=== PATIENT | male | born 1945 | race Caucasian/White ===

== ENCOUNTER 2016-07-11 09:53 | Inpatient (IN) | payer MEDICARE ==
[~2016-07-11] VITALS: Ht 162.6 cm; Wt 78.7 kg
[~2016-07-11 09:53] MED LIST: ADDE20 PO; DIAZ5TAB PO; HYDR-3533 PO; LISI-515 PO; METF1000 PO; NAPR500T PO
[2016-07-19] MEDS ORDERED: TURM500C PO (11:12)
[2016-07-19] MEDS ORDERED: VITA10007 PO (11:12)
[2016-07-19] MEDS ORDERED: MAGN250T2 PO (11:12)
[2016-07-19] MEDS ORDERED: D31000TA PO (11:12)
[2016-07-19] MEDS ORDERED: SUPETAB20 PO (11:12)
[2016-07-19] MEDS ORDERED: MULTTAB67 PO (11:12)
--- NOTE | 2016-07-27 12:38 | MH ---
cc: FRANCHESCA PASCAL M.D. DATE OF ADMISSION: 08/02/2016 ADMITTING DIAGNOSES 1. Severe osteoarthritis of the right knee. 2. Varus deformity right knee. 3. Degenerative tear medial meniscus right knee. 4. Pain right knee. 5. Gait disturbance. HISTORY The patient is a 70-year-old white male who has experienced at least a five-year history of pain involving his right knee. He had associated the onset of his symptoms as being related to participation in martial arts activities. He had undergone previous orthopedic evaluation in the past years for which he was treated with repeated courses of viscosupplementation utilizing Synvisc. He reports at least six courses of treatment during this interval of time with only temporary relief associated. He had also been taking Naprosyn for additional pain management. In the more recent past he had undergone sports medicine evaluation at the [facility] where an MRI scan was completed in April of this past year, the results of which identified severe osteoarthritic changes involving the medial compartment associated with a large degenerative tear involving the posterior horn and body of the medial meniscus. Hypertrophy of the anterior cruciate ligament was also identified. The patient was later seen by the undersigned physician in June of this year reporting increasing pain and incapacitation with regards to symptoms involving his right knee. There was frequent swelling and a grinding with an intermittent locking sensation being associated with a sensation of instability for which the patient had begun to utilize an orthotic support. He did report having undergone previous arthroscopic surgery of his left knee a number of years ago. 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 His x-ray studies had confirmed the presence of severe arthritic changes about the medial compartment with near [id number] apposition associated with a varus deformity of approximately 15 degrees magnitude. Findings and treatment options were reviewed with the patient in the presence of his . The pros and cons of continuing with conservative management versus operative intervention that would involve a total knee arthroplasty was outlined in detail. Emphasis was made regarding the fact that the decision to proceed with surgery would be left entirely to the patient's discretion. The patient readily admitted that he felt his discomfort had progressed to a point in time where he was ready to proceed in this direction and in compliance with his wishes he has currently been scheduled for admission in order that total knee replacement be completed. PAST MEDICAL HISTORY, HOSPITALIZATIONS AND SURGERIES 1. Arthroscopic surgery of the left knee as noted. 2. Esophageal dilation. 3. Lithotripsy. 4. Surgical intervention of a left wrist fracture that apparently included application of an external fixator and subsequent fusion as related to a history of trauma. MEDICAL ILLNESSES 1. Attention deficit disorder. 2. Hypertension. 3. Adult onset diabetes. CURRENT MEDICATIONS 1. Adderall 20 mg twice daily. 2. Diazepam 5 mg p.r.n. 3. Hydrocodone 5 mg p.r.n. 4. Lisinopril 20 mg daily. 5. Metformin 1000 mg daily. The patient reporting that he is a vegetarian. 6. Naproxen 500 mg p.r.n. 7. Multivitamin tablet daily. 8. Super-B Complex daily. 9. Vitamin C. 10. Magnesium. 11. Vitamin D3. 12. Tumeric, the last being taken twice daily. ALLERGIES The patient describes a drug allergy to LOSARTAN that has been as been associated with swelling. STATIN DRUGS have caused muscle and joint pain. REVIEW OF SYSTEMS He does wear glasses. Denies headache, seizure or syncope. Occasional sinus congestion as related to environmental agents. No epistaxis. Auditory acuity intact. No tinnitus. No bleeding gums or dysphagia. Denies cough or tuberculosis. There is a positive history of pneumonia. No angina or heart disease. He is medically managed for hypertension. His appetite is good. Bowel movements are regular. No hepatitis, gallbladder disease, ulcers or hemorrhoids. He has had no urinary tract infection but a positive history of kidney stones, multiple fractures including the ribs, mandible, nose, multiple toes and fingers. No psychiatric illness. His remaining review of systems is unremarkable and noncontributory. FAMILY HISTORY The patient has been 34 years. His is 70 years of age and described as being in good health. No children. Family history is otherwise positive for heart disease. SOCIAL HISTORY The patient completed a high school education with college credits thereafter. 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 He denies active use of tobacco, ethanol consumption on a limited and social basis. PHYSICAL EXAMINATION VITAL SIGNS: Height 5 feet, 4 inches, weight 167 pounds. GENERAL: An alert, oriented and responsive 70-year-old white male who sits quietly upon the examination table with no obvious distress. HEAD, EYES, EARS, NOSE, AND THROAT: Pupils are equal, round and reactive to light. Extraocular movements full. Sclerae clear. External nares clear. External auditory canals clear. Dental intact. Mucous membranes pink and moist. Pharynx clear. NECK: Supple. Active range of motion without appreciable pain. Carotid pulse bilaterally. Trachea midline. Thyroid without enlargement. LUNGS: Clear to auscultation and percussion. No CVA tenderness. No discomfort throughout the dorsal lumbar spine. HEART: Regular rhythm. No murmur or gallop. ABDOMEN: Soft, nontender. Bowel sounds present. RECTAL: Per primary care physician. EXTREMITIES: Right knee - No obvious swelling or effusion. There is an obvious varus deformity, medial joint line tenderness without palpable deformity. Apprehension and compression sign negative. Limited mobility in the 100 degree range of flexion without significant crepitation elicited. No appreciable collateral ligamentous instability. Colby test and drawer sign negative. Pivot shift and Zahra sign positive for medial compartment pain. Straight-leg raising unremarkable at 80 degrees satisfactory mobility of the right hip with no associated pain. Antalgic gait. NEUROLOGIC: Cranial nerves II-XII grossly intact. IMPRESSION Severe osteoarthritis of the right knee, varus deformity right knee, degenerative tear medial meniscus right knee, pain right knee, gait disturbance. PLAN Right total knee arthroplasty. The nature of the planned surgical procedure, the potential complications and risks associated, the expectations of surgery and the consent form were thoroughly reviewed with the patient in the presence of his prior to admission to the hospital. Zeyad has indicated his full understanding regarding all of the above and given consent to proceed with treatment as outlined. Medical evaluation and clearance for surgery will be completed by his primary care physician, Dr. Lewis. Franchesca Pascal MD NBS/SSB /12:04 PM /12:22 PM
[2016-08-02] MEDS ORDERED: ceFAZolin 2 GM PREMIX 50 ML IV SCH (07:15)
[2016-08-02] MEDS: POVIDONE IODINE 7.5% SCRUB 118 ML BOTTLE TOP SCH (07:15)
[2016-08-02] MEDS ORDERED: INSULIN HUMAN REGULAR 1,000 UNITS/10 ML VIAL SQ PRN (07:45)
[2016-08-02] MEDS ORDERED: SODIUM CHLORID 0.9% 500 ML IV SCH (07:45)
[2016-08-02] MEDS ORDERED: METOPROLOL TARTRATE 25 MG TAB PO PRN (07:45)
[2016-08-02] MEDS ORDERED: ceFAZolin INJ 1,000 MG VIAL ONE (07:58)
[2016-08-02] MEDS: LACTATED RINGER'S 1000 ML IV SCH ×2 (08:00→08:50)
[2016-08-02] MEDS ORDERED: BUPIVACAINE HCL PF 0.5% 30 ML VIAL NB ONE (08:03)
[2016-08-02] MEDS ORDERED: BUPIVACAINE HCL PF 0.25% 30 ML VIAL NB ONE (08:04)
[2016-08-02 08:09] VITALS: BP 121/82; PULSE 73; RESP 20; TEMP 97.8; O2SAT 96
[2016-08-02] MEDS: TRANEXAMIC ACID 1 GM PRIOR TO PROCEDURE IV SCH ×4 (09:00→10:01)
[2016-08-02] MEDS ORDERED: FAMOTIDINE 20 MG/2 ML VIAL ONE (09:13)
[2016-08-02] MEDS ORDERED: MIDAZOLAM HCL 5 MG/5 ML VIAL ONE (09:13)
[2016-08-02] MEDS ORDERED: ACETAMINOPHEN 1000 MG/100 ML VIAL IV ONE (09:35)
[2016-08-02] MEDS ORDERED: fentaNYL CITRATE 250 MCG/5 ML AMP ONE (09:35)
[2016-08-02] MEDS ORDERED: TRANEXAMIC ACID 1 GM POST-OP IV SCH ×2 (12:00)
[2016-08-02] MEDS ORDERED: NEOSTIGMINE 3 MG/3 ML SYR IV ONE (12:00)
[2016-08-02] MEDS ORDERED: ONDANSETRON HCL 4 MG/2 ML VIAL IV PUSH ONE (12:00)
[2016-08-02] MEDS ORDERED: LACTATED RINGER'S 1000 ML INJ 1,000 ML IV ONE (12:00)
[2016-08-02] MEDS ORDERED: PROPOFOL 200 MG/20 ML AMP IV ONE (12:00)
[2016-08-02] MEDS ORDERED: DO NOT ADM ANY ANTICOAGULANT DRUGS XX PRN (12:01)
[2016-08-02] MEDS ORDERED: *LABETALOL HCL 100 MG/20 ML VIAL PERIprocedural Use ONLY ONE (12:05)
[2016-08-02] MEDS ORDERED: *morphine SULFATE 8 MG/ML PERIprocedure ONLY ONE ×2 (12:06→12:19)
[2016-08-02] MEDS ORDERED: hydrALAZINE HCL 20 MG/ML VIAL ONE (12:07)
[2016-08-02] MEDS ORDERED: SODIUM CHLORIDE 0.9% FLUSH 5 ML FLUSH IVF PRN (12:15)
[2016-08-02] MEDS ORDERED: DOCUSATE SODIUM 100 MG CAP PO PRN (12:15)
[2016-08-02] MEDS ORDERED: HYDROmorphone HCL PF 2 MG/ML VIAL IV PRN (12:15)
[2016-08-02] MEDS ORDERED: ONDANSETRON HCL 4 MG/2 ML VIAL IVP PRN (12:15)
[2016-08-02] MEDS ORDERED: diphenhydrAMINE HCL 25 MG CAP PO PRN (12:15)
[2016-08-02] MEDS ORDERED: ACETAMINOPHEN 325 MG TAB PO PRN (12:15)
[2016-08-02] MEDS ORDERED: PROMETHAZINE INJ 25 MG/ML VIAL IM PRN (12:15)
[2016-08-02] MEDS ORDERED: MAGNESIUM HYDROXIDE SUSP 30 ML CUP PO PRN (12:15)
[2016-08-02] MEDS ORDERED: Post-op Orders (for Pharmacy) MISC XX ONE (12:15)
[2016-08-02] MEDS ORDERED: TRANEXAMIC ACID INJ 1,000 MG in SODIUM CHLORIDE 0.9% INJ 100 ML IV SCH (12:15)
[2016-08-02] MEDS ORDERED: BISACODYL 10 MG SUPP PR PRN (12:15)
[2016-08-02] MEDS ORDERED: NALOXONE HCL 0.4 MG/ML AMP IV PRN (12:15)
[2016-08-02] MEDS ORDERED: oxyCODONE/ACETAMINOPHEN 5 MG/325 MG TAB PO PRN (12:15)
[2016-08-02] MEDS ORDERED: MISCELLANEOUS PHARMACY INFORMATION XX ONE (12:15)
[2016-08-02] MEDS: DEXT 5%-NACL 0.45% 1000 ML INJ 1,000 ML IV SCH ×2 (12:45→20:05)
[2016-08-02] MEDS: MORPHINE SULFATE 30 MG/30 ML PCA IV SCH (12:46)
[2016-08-02] MEDS ORDERED: hydrALAZINE HCL 20 MG/ML VIAL IV ONE (13:00)
--- NOTE | 2016-08-02 13:55 | RADRPT ---
EXAM DATE/TIME: 08/02/2016 13:05 [facility] COMPARISON: No previous studies available for comparison. INDICATIONS : Post-op total right knee arthroplasty. MEDICAL HISTORY : Hypertension. SURGICAL HISTORY : Lithotripsy, Left wrist ORIF. ENCOUNTER: Initial ACUITY: 1 day PAIN SCORE: 7/10 LOCATION: Right knee. FINDINGS: AP and lateral views of the right knee demonstrate changes consistent with recent total knee arthropl asty with metallic hardware in place in the distal femur and proximal tibia. There is a radiolucent p atellar component. There is soft tissue gas present, as expected. A surgical drain is in place. CONCLUSION: Expected findings are present following recent right total knee arthroplasty. Aayush Truong MD on August 02, 2016 at 13:52 Board Certified Radiologist. This report was verified electronically.
[2016-08-02] MEDS: PCA - TOTAL MG MORPHINE DELIVERED PER SHIFT SCH ×2 (14:00→22:00)
[2016-08-02] MEDS ORDERED: DIAZEPAM 5 MG TAB PO PRN (14:00)
--- NOTE | 2016-08-02 14:04 | PD.CONS ---
HPI Service [facility] Hospitalists Consult Requested By Dr. Hari Pascal Reason for Consult Medical Management Primary Care Physician Gary Lewis MD Diagnoses: History of Present Illness Mr. Malcolm is a pleasant 70 y/o WM with diabetes mellitus, HTN, hyperlipidemia, CKD stage 2, GERD and osteoarthritis. Pt was admitted to [facility] for elective right total knee arthroplasty for severe osteoarthritis of the right knee with varus deformity. [facility] Hospitalist team was consulted to help with managing the pts chronic medical issues. Pt is seen post-operatively in PACU and has no complaints at the time of examination. He denies any chest pain, SOB, abd pain, nausea/vomiting. His pain is currently controlled. Vital signs are stable. Review of Systems Constitutional: DENIES: Fever, Chills Respiratory: DENIES: Shortness of breath Cardiovascular: DENIES: Chest pain, Palpitations Gastrointestinal: DENIES: Abdominal pain, Nausea, Vomiting Genitourinary: DENIES: Hematuria Musculoskeletal: COMPLAINS OF: Joint pain Neurologic: DENIES: Headache Psychiatric: DENIES: Confusion Past Family Social History Past Medical History Diabetes mellitus HTN Hyperlipidemia CKD, stage 2 ADD GERD Esophageal spasms Osteoarthritis Past Surgical History Tonsillectomy Sinus surgery Lithotripsy Deviated septum repair Knee arthroscopy Reported Medications -Naproxen 500 Mg Tab 500 Mg PO BID PRN -Metformin 1,000 Mg PO DAILY -Lortab 5-325 Mg PO Q6H PRN -Lisinopril 20 Mg PO DAILY -Diazepam 5 Mg PO HS PRN -Adderall 20 Mg PO BID Turmeric (Turmeric (Curcuma Longa)) 500 Mg Cap 500 Mg PO DAILY D3 (Cholecalciferol) 1,000 Unit Tab 1,000 Units PO DAILY Magnesium 250 Mg Tab 250 Mg PO DAILY Vitamin C (Ascorbic Acid) 1,000 Mg Tab 1,000 Mg PO DAILY Super B Complex Maxi (B-Complex W/ Folic Acid) 1 Tab 1 Tab PO DAILY Multiple Vitamin 1 Tab 1 Tab PO DAILY Allergies: Coded Allergies: Common Ragweed (Verified Allergy, Unknown, 03/29/16) Losartan (Verified Allergy, Unknown, 03/29/16) Lovastatin (Verified Allergy, Unknown, 03/29/16) Pravastatin (Verified Allergy, Unknown, 03/29/16) Simvastatin (Verified Allergy, Unknown, 03/29/16) Family History Mother with hx of diabetes mellitus, at age 86 Father with hx of CAD/LA Social History Denies any alcohol, tobacco or illicit drug use Physical Exam Vital Signs Vital Signs Date Time Temp Pulse Resp B/P Pulse Ox O2 Delivery O2 Flow Rate FiO2 08/02/16 12:46 15 08/02/16 09:30 63 12 137/87 98 08/02/16 09:00 98 Nasal Cannula 3 08/02/16 09:00 69 14 129/95 99 08/02/16 08:09 97.8 73 20 121/82 96 Physical Exam GENERAL: This is a well-nourished, well-developed patient, in no apparent distress. HEENT: Atraumatic. Normocephalic. No temporal or scalp tenderness. No scleral icterus. Airway patent. NECK: Trachea midline, supple, nontender. CARDIO: Regular. RESP: CTA bilaterally. No wheezes, rales, or rhonchi. ABD: +BS, soft, non-tender, nondistended. EXT: Bandages to right knee are c/d/i NEURO: Awake and alert. Motor and sensory grossly within normal limits. Normal speech. Laboratory Laboratory Tests Test 08/02/16 07:54 Blood Type A POSITIVE Antibody Screen NEGATIVE Blood Bank Comment Assessment and Plan Problem List: (1) Localized osteoarthritis of right knee Status: Chronic Plan: - Pt s/p right total knee arthroplasty on 08/02/[address] Pascal - Post-op pain control per Ortho - PT daily - IS - Constipation precautions - DVT prophylaxis (2) Diabetes Status: Chronic Plan: - NovoLog SSI - Resume Metformin in AM - Accu checks (3) HTN (hypertension) Status: Chronic Plan: - Cont. home meds - Monitor Assessment and Plan Patient examined. Assessment and plan formulated with Sierra Rick PA-C. I agree with the above. s/p right tka. has dm/htn. will monitor and follow. Problem Qualifiers (1) Diabetes: Sierra Rick Aug 02, 2016 14:04 Rafa Chairez MD Aug 02, 2016 14:44
[2016-08-02] MEDS: INSULIN ASPART SUPPLEMENTAL SCALE SQ SCH ×2 (17:30→21:00)
[2016-08-02 18:49] VITALS: O2SAT 97
[2016-08-02 20:06] VITALS: BP 116/76; PULSE 88; RESP 20; TEMP 97; O2SAT 98
[2016-08-02] MEDS: DEXTROAMPHETAMINE/AMPHETAMINE 20 MG TAB PO SCH (21:00)
[2016-08-02] MEDS: SODIUM CHLORIDE 0.9% FLUSH 5 ML FLUSH IVF SCH (21:00)
[2016-08-02] MEDS ORDERED: ZOLPIDEM TARTRATE 5 MG TAB PO PRN (21:00)
[2016-08-02] MEDS ORDERED: DEXTROAMPHETAMINE/AMPHETAMINE 20 MG TAB PO SCH (21:00)
[2016-08-03] VITALS (8 sets, daily range): BP systolic 100–131; BP diastolic 60–72; PULSE 70–109; RESP 16–21; TEMP 97.9–100.1; O2SAT 94–98
[2016-08-03] MEDS: DEXT 5%-NACL 0.45% 1000 ML INJ 1,000 ML IV SCH ×3 (04:05→20:05)
[2016-08-03 05:12] LABS: AUTOMATED NEUTROPHIL # 9.9 TH/MM3 (1.8-7.7); BASOPHIL % 0.2 % (0.0-2.0); EOSINOPHIL % 0.2 % (0.0-4.0); HEMATOCRIT 34.9 % (39.0-51.0); LYMPH % 16.6 % (9.0-44.0); LYMPHOCYTE # 2.2 TH/MM3 (1.0-4.8); MEAN CELL VOLUME 61.7 FL (80.0-100.0); MEAN CORPUSCULAR HEMOGLOBIN 19.8 PG (27.0-34.0); MONO % 8.6 % (0.0-8.0); NEUT % 74.4 % (16.0-70.0); PLATELET COUNT 293 TH/MM3 (150-450); RED BLOOD COUNT 5.66 MIL/MM3 (4.50-5.90); RED CELL DISTRIBUTION WIDTH 15.5 % (11.6-17.2); WHITE BLOOD COUNT 13.2 TH/MM3 (4.0-11.0)
[2016-08-03 05:13] LABS: HEMO FLAGS AUTO DIFF
[2016-08-03] MEDS: MORPHINE SULFATE 30 MG/30 ML PCA IV SCH ×2 (05:27→19:36)
[2016-08-03] MEDS: PCA - TOTAL MG MORPHINE DELIVERED PER SHIFT SCH ×3 (05:28→20:13)
[2016-08-03 05:42] LABS: BICARBONATE 25.2 MEQ/L (21.0-32.0); POTASSIUM 3.9 MEQ/L (3.5-5.1)
[2016-08-03] MEDS: INSULIN ASPART SUPPLEMENTAL SCALE SQ SCH ×4 (05:49→20:12)
[2016-08-03] MEDS ORDERED: ASPI325T PO (06:24)
[2016-08-03] MEDS ORDERED: OXYC1TAB63 PO (06:24)
--- NOTE | 2016-08-03 06:27 | HHI.FF ---
Face to Face Verification Diagnosis: (1) DJD (degenerative joint disease) of knee Physical Therapy Gait training Knee: Total knee, Protocol: Right, Full weight bearing Right LE Weight Bearing: WB as tolerated Right LE Range of Motion: Active ROM Nursing Dressing Changes: Daily dressing change I have seen patient Zeyad Malcolm on 08/03/16. My clinical findings support the need for the requested home health care services because: Limited ability to care for self High risk of falls I certify that my clinical findings support that this patient is homebound because: Post-op weakness Unsteady gait/balance Unsafe to leave home unassisted Tristian Pascal MD Aug 03, 2016 06:26
[2016-08-03] MEDS ORDERED: WALKER WHEELS/F1 MIS (06:28)
[2016-08-03] MEDS: POVIDONE IODINE 7.5% SCRUB 118 ML BOTTLE TOP SCH (07:15)
[2016-08-03 08:55] LABS: SCAN/DIFF AUTO DIFF CONFIRMED
[2016-08-03 08:56] LABS: OVALOCYTES 1+ (NORMAL)
[2016-08-03] MEDS: metFORMIN HCL 500 MG TAB PO SCH (09:00)
[2016-08-03] MEDS: SODIUM CHLORIDE 0.9% FLUSH 5 ML FLUSH IVF SCH ×2 (09:00→20:05)
[2016-08-03] MEDS: DEXTROAMPHETAMINE/AMPHETAMINE 20 MG TAB PO SCH ×2 (09:00→16:32)
[2016-08-03] MEDS: LISINOPRIL 20 MG TAB PO SCH (09:59)
[2016-08-03] MEDS: RIVAROXABAN 10 MG TAB PO SCH (11:23)
--- NOTE | 2016-08-03 12:47 | MP ---
cc: FRANCHESCA PERALES DATE OF OPERATION August 02, 2016 PREOPERATIVE DIAGNOSES Severe osteoarthritis of the right knee. Varus deformity right knee. Degenerative tear medial meniscus right knee. Pain right knee. Gait disturbance. POSTOPERATIVE DIAGNOSES Severe osteoarthritis of the right knee. Varus deformity right knee. Degenerative tear medial meniscus right knee. Pain right knee. Gait disturbance. PROCEDURE Right total knee arthroplasty. SURGEON MD Gwyn ANESTHESIA General endotracheal. INDICATIONS A 70-year-old white male with a five-year history of right knee pain having associated the onset of his symptoms with participation in martial arts activities. He had undergone prior orthopedic evaluation in previous years being treated with repeated courses of viscosupplementation utilizing Synvisc. He describes at least six courses of intervention in this regard with only temporary relief being noted. He also had been taking Naprosyn for additional pain relief. In the more recent past he had undergone a sports medicine evaluation were MRI scan was completed in April of this past year, the results of which identified severe osteoarthritic changes throughout the medial compartment associated with a large degenerative tear involving the posterior horn and body of the medial meniscus hypertrophy of the anterior cruciate ligament was also identified. The patient was later seen by the undersigned physician in June of this year reporting increasing pain and incapacitation regarding weightbearing activities. He was noting frequent swelling and a grinding sensation with intermittent locking and a sensation of instability for which the patient had begun to utilize an orthotic support. 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 His x-ray studies confirmed the presence of severe arthritic changes about the medial compartment with near [id number] apposition associated with a varus deformity of at least 15 degrees magnitude. Findings and treatment options were reviewed with the patient in the presence of his . The pros and cons of continuing with conservative management versus operative intervention that would involve a total knee arthroplasty were outlined in detail. Emphasis was made regarding the fact that the decision to proceed with surgery would be left entirely to the patient's discretion. The patient readily admitted that his symptoms had progressed to a point in time where he was ready to proceed in this direction and in compliance with his wishes he was scheduled for admission at this time in order that total knee replacement be completed. FORMAT Following induction of satisfactory general anesthesia by endotracheal intubation as completed per the Department of Anesthesia, a tourniquet was established around the proximal portion of the right lower extremity. The extremity proper was isolated with a U-drape thereafter being prepped with Betadine solution and draped into a sterile field in the routine manner. Prior to initiation of the actual procedure, the standard time-out protocol was completed. All parameters were appropriately addressed and confirmed by operating room personnel. The extremity was elevated for approximately 1 minute and the tourniquet thus inflated to 250 mmHg pressure. A sharp skin incision was initiated midline over the anterior aspect of the knee and developed through underlying subcutaneous tissue with hemostasis maintained by electrocautery. By deepening dissection the anterior capsule was exposed, the medial capsulotomy completed and the patella subluxed in a lateral orientation. Examination of the joint space revealed severe degenerative changes throughout the medial compartment with complete erosion of articular cartilage and underlying subchondral bone exposed. Degenerative changes extended into the patellofemoral region. A degenerative tear of the medial meniscus was also noted. The articular surface of the patella was resected with power saw. The three-holed guide was utilized for establishing post holes. Anterior cruciate ligament as well as medial and lateral meniscus structures were sharply excised. A centering hole was placed in the distal aspect of the femur allowing positioning of the intramedullary guide. The distal femoral cutting jig was attached and the distal femur resected. AP measurement noted 65-mm sizing to be appropriate. The matching cutting block was positioned. Anterior, posterior and chamfer cuts were completed. The tibial plateau was thereafter subluxed into an anterior orientation allowing positioning of the extramedullary guide. The tibial plateau was resected and measured with 79-mm sizing determined to be satisfactory. A trial reduction followed utilizing a 65-mm anatomic femoral component, a 79-mm tibial base with 10, 12 and 14-mm bearing inserts trialed in a sequential fashion. The 14-mm thickness was determined to be the most favorable fit. The knee was readily brought to full extension. There was no laxity to varus or valgus stress at both 0 and 90 degrees flexed posture. Orientation was confirmed as appropriate with measurement of the pelvic guide through the mechanical axis of the knee. A trial reduction followed utilizing a 34-mm standard patellar button. Once again good tracking was noted with no tendency toward subluxation. All trial components were thereafter removed, the remaining portion of proximal tibia was prepared for insertion of the permanent component. The joint space was thoroughly lavaged with pulsating antibiotic solution, hemostasis maintained by electrocautery. An autogenous bone plug was inserted into the distal femoral guide hole and thereafter a preparation of cobalt bone cement was utilized in inserting knee components in a sequential fashion which included a 79-mm fixed cruciate tibial plate to which a 14-mm Vanguard tibial bearing insert was secured with locking thomas. The 65-mm Vanguard femoral component was firmly seated onto the distal femur, excess cement being removed. The knee was brought to full extension and thereafter the 34-mm standard three post patellar button was attached and maintained in place with patellar clamp while cement hardening was completed. Final range of motion assessment noted good tracking and stability throughout the knee. Irrigation was repeated and hemostasis maintained. Autovac drain tubes were inserted through superior stab wounds. The capsule was repaired with 0 Vicryl suture. The remaining portion of the wound was closed in layers in the routine manner, skin margins being reapproximated with a running subcuticular 3-0 Vicryl suture over which Steri-Strips were applied. Xeroform gauze and a bulky dry sterile dressing were placed. The extremity being supported in a canvas knee splint, anesthesia was discontinued. He was thereafter transferred to a hospital bed and returned to the recovery room in satisfactory condition having tolerated his operative procedure well. Estimated blood loss was approximately 100 cc. All implants were of the [employer] wind tunnel engineer. MD SANTHOSH Bustos/LATESHA /11:59 AM /12:11 PM
[2016-08-04 00:05] VITALS: BP 117/69; PULSE 97; RESP 20; TEMP 99.2; O2SAT 97
[2016-08-04] MEDS: DEXT 5%-NACL 0.45% 1000 ML INJ 1,000 ML IV SCH ×2 (04:05→07:51)
[2016-08-04 04:06] VITALS: BP 134/75; PULSE 84; RESP 20; TEMP 97.8; O2SAT 96
[2016-08-04] MEDS: PCA - TOTAL MG MORPHINE DELIVERED PER SHIFT SCH ×2 (06:00→07:52)
[2016-08-04] MEDS: INSULIN ASPART SUPPLEMENTAL SCALE SQ SCH ×2 (06:38→11:00)
[2016-08-04] MEDS: POVIDONE IODINE 7.5% SCRUB 118 ML BOTTLE TOP SCH (07:15)
[2016-08-04] MEDS: DEXTROAMPHETAMINE/AMPHETAMINE 20 MG TAB PO SCH (07:50)
[2016-08-04] MEDS: metFORMIN HCL 500 MG TAB PO SCH (07:50)
[2016-08-04] MEDS: LISINOPRIL 20 MG TAB PO SCH (07:50)
[2016-08-04] MEDS: SODIUM CHLORIDE 0.9% FLUSH 5 ML FLUSH IVF SCH (07:51)
[2016-08-04] MEDS: oxyCODONE/ACETAMINOPHEN 5 MG/325 MG TAB PO PRN ×2 (07:52→11:11)
[2016-08-04 08:00] VITALS: BP 145/87; PULSE 80; RESP 19; TEMP 97.6; O2SAT 96
[2016-08-04] MEDS: RIVAROXABAN 10 MG TAB PO SCH (11:11)
[2016-08-04 12:00] VITALS: BP 104/71; PULSE 100; RESP 17; TEMP 97.4; O2SAT 95
--- NOTE | 2016-08-10 06:57 | MD ---
cc: FRANCHESCA PERALES M.D., MARIO ADMISSION DATE: 08/02/2016 DISCHARGE DATE: 08/04/2016 ADMISSION DIAGNOSIS Severe osteoarthritis of the right knee, varus deformity right knee degenerative tear medial meniscus right knee, pain right knee, and gait disturbance. DISCHARGE DIAGNOSIS Severe osteoarthritis of the right knee, varus deformity right knee degenerative tear medial meniscus right knee, pain right knee, and gait disturbance. HISTORY A 70-year-old white male with a five year history of right knee pain as related to degenerative joint disease. He had conformed to conservative management in the past which included repeated courses of viscosupplementation with Synvisc which unfortunately did not prove to be of any lasting benefit. He had undergone medical evaluation in the recent past with MRI scan reporting severe osteoarthritic changes involving the medial compartment associated with a large degenerative tear involving the posterior horn and body of the medial meniscus and hypertrophy of the anterior cruciate ligament. The patient was later seen by the undersigned physician in June of this year reporting increasing pain and incapacitation with regards to his right knee. He was aware of frequent swelling and grinding with intermittent locking associated and the sensation of instability. His x-ray studies confirmed the presence of severe arthritic changes about the medial compartment with near [id number] apposition associated with a varus deformity of approximately 15 degrees magnitude. Findings and treatment options were reviewed. The pros and cons of continuing with conservative management versus operative intervention involving total knee arthroplasty were outlined in detail. Emphasis was made regarding the fact that the decision to proceed with surgery would be left entirely to the patient's discretion. The patient felt that his symptoms had progressed to a point in time where he was ready to proceed in this direction and in compliance with his wishes, he was scheduled for admission at this time in order that the above be accomplished. His physical examination of the time of admission revealed no obvious swelling or effusion. There was varus deformity with medial joint line tenderness without palpable deformity. Apprehension and compression sign negative. Limited mobility in the 100 degree range of flexion without appreciable crepitation. No collateral ligamentous instability. Colby test and drawer sign negative. Pivot shift and Zahra sign positive for medial compartment pain. Straight-leg raising unremarkable at 80 degrees. Antalgic gait. HOSPITAL COURSE Prior to admission to the hospital, the patient had undergone medical evaluation and clearance for surgery as completed by his primary care physician Dr. Lewis. He was taken to the operating room on August 02, 2016 and on that date underwent a right total knee arthroplasty completed in an uncomplicated manner. The patient was noted to have tolerated his operative procedure well and his postoperative course stable thereafter. Hemoglobin/hematocrit assessment postoperatively 11.2 and 34.9 respectively. The patient was progressively mobilized under the guidance of physical therapy being permitted weightbearing to tolerance about the right lower extremity. Follow up examination of his surgical wound noted to be intact healing favorably with no evidence of infection. Medical followup per the hospitalist service. DVT prophylaxis initiated. human services worker consulted to assist with discharge planning. The patient had expressed his desire to be discharged home and continue his rehabilitation on an outpatient basis. Plans were finalized in this regard and he was subsequently scheduled for discharge on the second postoperative day at which time he was noted to be making favorable progress with regards to his rehab program. He was scheduled to be seen in office followup in approximately four weeks. His condition at the time of discharge was stable. Prognosis favorable. DISCHARGE MEDICATIONS 1. Oxycodone 5/325 #60 2. Aspirin 325 mg one tablet twice daily for 3 weeks #40. MD SANTHOSH Bustos/VEL /6:48 AM /5:47 AM
== END 2016-08-04 14:35 | disposition home health service (06) | DRG 470 ==
LOC: HSDI 08-02 06:11 → N06A 08-02 18:02
PROVIDERS: ADMIT Orthopaedic Surgery; ATTEND Orthopaedic Surgery
PROC: 0SRC0J9 Replacement of Right Knee Joint with Synthetic Substitute, Cemented, Open Approach (ICD-10-PCS; principal; 2016-08-02 09:42)
DX: M17.11 Unilateral primary osteoarthritis, right knee (principal); E11.22 Type 2 diabetes mellitus with diabetic chronic kidney disease; I12.9 Hypertensive chronic kidney disease with stage 1 through stage 4 chronic kidney disease, or unspecified chronic kidney disease; M23.221 Derangement of posterior horn of medial meniscus due to old tear or injury, right knee; M21.161 Varus deformity, not elsewhere classified, right knee; N18.2 Chronic kidney disease, stage 2 (mild); E78.5 Hyperlipidemia, unspecified; K21.9 Gastro-esophageal reflux disease without esophagitis; K22.4 Dyskinesia of esophagus; F98.8 Other specified behavioral and emotional disorders with onset usually occurring in childhood and adolescence
CPT/HCPCS: 73560; 80048; 82948; 83735; 85025; 86850; 86900; 86901; 88300; 88305; 94150; C1776; J0131; J0360; J0690; J1815; J2250; J2270; J2405; J2710; J3010; J7120; L1830

== ENCOUNTER → 2016-07-19 | Outpatient (CLI) | payer MEDICARE ==
[~2016-07-19] MED LIST changes: +AMPH10TA23 PO; +ASPI325T PO; +CIAL10TA PO; +CYCL1TAB29 PO; +D31000TA PO; +LEVO500T3 PO; +MAGN250T2 PO; +MULTTAB67 PO; +OXYC1TAB63 PO; +SUPETAB20 PO; +TURM500C PO; +VITA10007 PO; +WALKER WHEELS/F1 MIS; +[UNRECOGNIZED DRUG - CODE]
[2016-07-19 11:23] LABS: BLOOD, URINE NEG (NEG); COMMENT (UR) CULT NOT INDICATED; CULTURE IF INDICATED CULT NOT INDICATED; GLUCOSE,URINE NEG (NEG); KETONE, URINE NEG (NEG); NITRITE,URINE NEG (NEG); PH, URINE 5.5 (5.0-8.5); URINE COLOR YELLOW (YELLW/STRAW)
[2016-07-19 11:28] LABS: AUTOMATED NEUTROPHIL # 6.6 TH/MM3 (1.8-7.7); BASOPHIL # 0.1 TH/MM3 (0-0.2); BASOPHIL % 0.6 % (0.0-2.0); EOSINOPHIL # 0.5 TH/MM3 (0-0.4); EOSINOPHIL % 4.7 % (0.0-4.0); LYMPH % 18.2 % (9.0-44.0); LYMPHOCYTE # 1.8 TH/MM3 (1.0-4.8); MEAN CELL VOLUME 61.6 FL (80.0-100.0); MEAN CORPUSCULAR HEMOGLOBIN 19.8 PG (27.0-34.0); MEAN CORPUSCULAR HGB CONC 32.1 % (32.0-36.0); MONO % 7.8 % (0.0-8.0); NEUT % 68.7 % (16.0-70.0); PLATELET COUNT 294 TH/MM3 (150-450); RED CELL DISTRIBUTION WIDTH 15.4 % (11.6-17.2); WHITE BLOOD COUNT 9.6 TH/MM3 (4.0-11.0)
[2016-07-19 11:31] LABS: PROTHROMBIN TIME - PATIENT 10.9 SEC (9.8-11.6)
[2016-07-19 11:33] LABS: HEMO FLAGS AUTO DIFF
--- NOTE | 2016-07-19 11:48 | RADRPT ---
EXAM DATE/TIME: 07/19/2016 11:26 [facility] COMPARISON: No previous studies available for comparison. INDICATIONS : Evaluate for pneumothorax, pneumonia and communicable disease. Pre op for total knee. MEDICAL HISTORY : None. SURGICAL HISTORY : None. ENCOUNTER: Initial ACUITY: 1 day PAIN SCORE: 0/10 LOCATION: Bilateral chest FINDINGS: PA and lateral views of the chest demonstrate the lungs to be symmetrically aerated without evidence of mass, infiltrate or effusion. The cardiomediastinal contours are unremarkable. Osseous structure s are intact. CONCLUSION: No acute disease. Aayush Martinez MD on July 19, 2016 at 11:45 Board Certified Radiologist. This report was verified electronically.
[2016-07-19 11:55] LABS: BICARBONATE 29.2 MEQ/L (21.0-32.0); POTASSIUM 4.1 MEQ/L (3.5-5.1)
[2016-07-19 13:10] LABS: KERATOCYTES OCC (NORMAL); OVALOCYTES 1+ (NORMAL)
[2016-07-19 13:11] LABS: SCAN/DIFF AUTO DIFF CONFIRMED
--- NOTE | 2016-07-19 21:43 | EKG ---
Date Performed: 07/19/2016 Time Performed: 10:45:14 PTAGE: 70 years EKG: Sinus rhythm INFERIOR MYOCARDIAL INFARCTION, PROBABLY OLD ABNORMAL ECG PREVIOUS TRACING : 02/03/2014 21.57 Compared to prior tracing no significant change DOCTOR: Sherry Bajwa Interpretating Date/Time 07/19/2016 21:41:26
== END ==
LOC: CPRE 10:14
PROVIDERS: ATTEND Orthopaedic Surgery
DX: Z01.810 Encounter for preprocedural cardiovascular examination (principal); Z01.811 Encounter for preprocedural respiratory examination; Z01.812 Encounter for preprocedural laboratory examination; M17.11 Unilateral primary osteoarthritis, right knee
CPT/HCPCS: 36415; 71020; 80048; 81001; 85025; 85610; 93005